=== PATIENT | female | born 1960 | race African-American/Black ===

== ENCOUNTER 2023-09-20 15:27 | Inpatient (IN) | payer SELFPAY ==
[2023-09-20] MEDS ORDERED: NOREPINEPHRINE 8 MG/250 ML-D5W 250 ML ONE ×2 (15:53→22:34)
[2023-09-20] MEDS ORDERED: Sodium Chloride 0.9% 100 ML ONE (16:27)
[2023-09-20] MEDS ORDERED: Cefepime 2 GM VIAL ONE (16:27)
[2023-09-20 16:34] LABS: Analyzer IN Cardio ER; Base Excess (BEa) -19.9 mEq/L (-2.0 to +3.0); Calcium, Ionized (arterial) 1.08 mmol/L (1.12-1.30); Carboxyhemoglobin (COHb) 1.3 gm% (0.0-3.0); Hematocrit-ABG 41 % (36.0-47.0); Hemoglobin (Hb) 13.9 g/dL (12.0-16.0); O2 Tension (PaO2), arterial 73.6 mmHg (> 80.0); Potassium - ABG Lab 4.07 mmol/L (3.70-5.30)
[2023-09-20 16:37] LABS: Bacteria/HPF None Seen HPF (None Seen); Bilirubin Negative (Negative); Blood, Urine Trace (Negative); CAUTI Indications for Culture Alt mental st,lethar; Clarity Turbid (Clear); Glucose, Urine (Dipstick) Normal (Negative); Ketone, Urine Negative (Negative); Leukocyte Negative Leu/uL (Negative); Nitrite Negative (Negative); Protein, Urine (Dipstick) 50 mg/dL (Neg-Trace); Specific Gravity, Urine 1.023 (1.002-1.036); Urobilinogen Normal mg/dL (Less than 2); WBC/HPF 0-3 HPF (0-3); pH, Urine 5.5 (5.0-9.0)
[2023-09-20] MEDS ORDERED: KETAMINE 100 MG/ML (5ML VIAL) ONE (16:37)
[2023-09-20 16:39] LABS: Urine Culture Reflex No No
[2023-09-20] MEDS ORDERED: Sodium Bicarb 50 mEq/50 ML VIAL ONE ×4 (16:39→21:47)
[2023-09-20 16:52] LABS: Delete Auto Diff?? YES; Hematocrit 41.8 % (36.0-47.0); Hemoglobin 13.3 g/dL (12.0-16.0); Manual Diff?? YES; Mean Corpuscular HGB CONC 31.8 g/dL (32.0-36.0); Mean Corpuscular Hemoglobin 31.6 pg (27.0-31.0); Mean Corpuscular Volume 99.3 fl (78.0-98.0); Platelet Count 321 10x3/uL (130-400); RBC Distribution Width 13.2 % (11.5-14.5); Red Blood Cell (RBC) Count 4.21 mill/uL (4.20-5.40); White Blood Cell (WBC) Count 2.3 10x3/uL (4.8-10.8)
[2023-09-20 16:57] LABS: pH, Arterial 7.121 (7.35-7.45)
[2023-09-20 16:58] LABS: ALV-art Gradient 609.025 mmHg (0-20); Actual Bicarbonate (HCO3a) 7.7 mEq/L (22-28); CO2 Tension 24.3 mmHg (35.0-45.0); Puncture Site RBA
[2023-09-20 17:09] LABS: SARS-CoV-2 NAA Rapid Test Not Detected (NotDetected)
[2023-09-20 17:15] LABS: Anisocytosis MARKED = >30 cells HPF (0-5); Band 17 % (5-11); Burr Cells SLIGHT = 2-5 cells HPF (0-1); CellaVision Operator ID LAB.MJL; Dohle Bodies SLIGHT; Eosinophils 1 % (0-10); Large Platelets 14.4 % (0-5); Lymphocytes 47 % (21-51); Macrocytosis MODERATE=16-30 cells HPF (0-5); Metamyelocyte 10 % (0-0); Monocytes 5 % (0-10); Myelocyte 4 % (0-0); Neutrophil 13 % (42-75); Nucleated RBC (Manual Ct) 6 % (0); Platelet Adequacy Comment Platelets Normal; Platelet Clumps 3.6 % (0-5); Poikilocytosis SLIGHT = 6-15 cells HPF (0-5); Polychromasia SLIGHT = 2-3 cells HPF (0-2); Promyelocytes 1 % (0-0); Reactive Lymphocytes 3 % (0-10); Reflex for Review?? YES; Total Cell Count 111; Toxic Granulation MODERATE; Vacuoles SLIGHT
[2023-09-20 17:30] LABS: ALT (SGPT) 15 U/L (8-55); AST (SGOT) 37 U/L (5-34); Acetaminophen Less than 10 mcg/mL (10.0-30.0); Albumin 3.2 g/dL (3.4-4.8); Alcohol Less than 10.0 mg/dL (Less than 10); Alkaline Phosphatase 58 U/L (40-110); BUN (Urea Nitrogen) 55 mg/dL (9.8-20.1); CK (CPK) 95 U/L (29-168); Calc. Creatinine Clearance 0 mL/min (70-130); Chloride 101 mmol/L (98-107); Estimated GFR 13; Globulin 4.5 g/dL (2.4-3.5); Glucose 67 mg/dL (80-115); Lipase 21 U/L (8-78); Magnesium 2.1 mg/dL (1.6-2.6); Protein, Total 7.7 g/dL (5.8-8.1); Salicylate Less than 8.0 mg/dL (15.0-30.0); Sodium 138 mmol/L (136-145)
[2023-09-20 17:37] LABS: Carbon Dioxide Less than 8 mmol/L (23-31); Troponin I 0.093 ng/mL (< 0.028)
[2023-09-20 17:47] LABS: Critical Call Chem-Lactate NUR.LH8@1746
[2023-09-20] MEDS ORDERED: Vancomycin (BATCH) 1.5 GM in Premix 1 BAG IVPB SCH (18:45)
[2023-09-20 19:48] LABS: Analyzer IN Cardio ER; Base Excess -15.7 mEq/L (-2.0 to +3.0); Calcium, Ionized (venous) 0.94 mmol/L (1.16-1.32); Chloride (VBG) 102 mmol/L (98-106); Hematocrit-VBG 40 % (36.0-47.0); Hemoglobin (Hb) 13.7 g/dL (11.7-16.0); Sodium 142 mmol/L (133-146)
[2023-09-20] MEDS ORDERED: Rocuronium Bromide 10 MG/ML (10ML VIAL) ONE (19:56)
[2023-09-20 20:14] LABS: Critical Call Chem-Lactate NUR.AG13@2014
[2023-09-20] MEDS ORDERED: Vasopressin 20 UNITS/ML VIAL ONE ×2 (20:20)
[2023-09-20 20:49] LABS: Analyzer IN Cardio ER; Base Excess (BEa) -20.7 mEq/L (-2.0 to +3.0); Carboxyhemoglobin (COHb) 0.6 gm% (0.0-3.0); Hematocrit-ABG 39 % (36.0-47.0); Hemoglobin (Hb) 13.3 g/dL (12.0-16.0); O2 Tension (PaO2), arterial 88.6 mmHg (> 80.0); Potassium - ABG Lab 4.45 mmol/L (3.70-5.30)
[2023-09-20 21:13] LABS: pH, Arterial 6.963 (7.35-7.45)
[2023-09-20 21:14] LABS: Actual Bicarbonate (HCO3a) 11.1 mEq/L (22-28)
[2023-09-20 21:15] LABS: Puncture Site RFA
[2023-09-20] MEDS ORDERED: Acetaminophen 650 MG Suppository ONE (21:19)
[2023-09-20] MEDS ORDERED: Propofol 1,000 MG/100 ML VIAL IV ONE (21:19)
[2023-09-20] MEDS ORDERED: Fentanyl CADD 100 ML IV SCH (21:30)
[2023-09-20] MEDS ORDERED: Ventilator Sedation Protocol 1 EACH FS ONE (21:46)
[2023-09-20] MEDS ORDERED: Hydrocortisone Sod Succ/PF 100 mg/2 ml Vial ONE (21:47)
[2023-09-20] MEDS ORDERED: Dextrose 50% Abboject 50 ML SYRINGE SLOW IVP PRN (21:57)
[2023-09-20] MEDS ORDERED: HumaLOG 300 UNITS/3 ML VIAL SC PRN ×2 (21:57)
[2023-09-20] MEDS ORDERED: Dextrose 5% in Water 1,000 ML IV PRN (21:57)
[2023-09-20] MEDS ORDERED: Glucagon 1 MG/ML KIT IM PRN (21:57)
[2023-09-20] MEDS ORDERED: Acetaminophen 325 MG TAB PO PRN (21:59)
[2023-09-20] MEDS ORDERED: Ondansetron ODT 4 MG TAB PO PRN (21:59)
[2023-09-20] MEDS ORDERED: Ondansetron PF 4 MG/2 ML Vial IVP PRN (21:59)
[2023-09-20] MEDS ORDERED: Propofol 1,000 MG/100 ML VIAL IV PRN (22:00)
[2023-09-20] MEDS ORDERED: Fentanyl BOLUS 250 ML IVPB PRN (22:00)
[2023-09-20] MEDS ORDERED: Pantoprazole 40 MG VIAL IVP SCH (22:00)
[2023-09-20] MEDS ORDERED: Morphine 2 MG/ML VIAL SLOW IVP PRN (22:00)
[2023-09-20] MEDS ORDERED: Propofol BOLUS 1,000 MG/100 ML VIAL IV PRN (22:00)
[2023-09-20] MEDS ORDERED: DISCONTINUE PREVIOUS NARCOTIC PAIN MEDICATIONS AND BENZODIAZEPINES FS SCH (22:00)
[2023-09-20] MEDS ORDERED: Lorazepam 2 MG/ML VIAL SLOW IVP PRN (22:00)
[2023-09-20] MEDS ORDERED: Sodium Bicarbonate 150 MEQ in Dextrose 5% in Water 1,000 ML IV SCH ×2 (22:00→23:45)
[2023-09-20 22:32] LABS: Actual Bicarbonate (HCO3a) 19.6 mEq/L (22-28); Analyzer IN Cardio ER; Base Excess (BEa) -10.2 mEq/L (-2.0 to +3.0); Calcium, Ionized (arterial) 0.95 mmol/L (1.12-1.30); Carboxyhemoglobin (COHb) 0.5 gm% (0.0-3.0); Hematocrit-ABG 40 % (36.0-47.0); Hemoglobin (Hb) 13.6 g/dL (12.0-16.0); Potassium - ABG Lab 3.64 mmol/L (3.70-5.30)
[2023-09-20] MEDS ORDERED: Acetaminophen 325 MG Suppository ONE (22:34)
[2023-09-20 22:58] LABS: Puncture Site RFA
[2023-09-20] MEDS ORDERED: Potassium Chloride 20 MEQ in Premix 1 BAG IVPB SCH (23:00)
[2023-09-20 23:28] LABS: Anion Gap 30 mmol/L (10-20); BUN (Urea Nitrogen) 64 mg/dL (9.8-20.1); Calc. Creatinine Clearance 0 mL/min (70-130); Calcium 8.2 mg/dL (7.8-10.44); Carbon Dioxide 13 mmol/L (23-31); Chloride 103 mmol/L (98-107); Estimated GFR 12; Potassium 3.9 mmol/L (3.5-5.1); Sodium 142 mmol/L (136-145)
[2023-09-20 23:29] LABS: Lactic Acid 12.3 mmol/L (0.5-2.2)
[2023-09-20 23:38] LABS: Critical Call Chemistry REHAB.JMB@2337; Glucose 53 mg/dL (80-115); Troponin I 0.167 ng/mL (< 0.028)
[2023-09-21] MEDS ORDERED: LevoFLOXacin 750 mg/D5W 750 MG in Premix 1 BAG IVPB SCH (01:00)
[2023-09-21] MEDS: Sodium Bicarbonate 150 MEQ in Dextrose 5% in Water 1,000 ML IV SCH ×4 (01:55→17:34)
[2023-09-21 02:06] LABS: Legionella Urinary Ag Negative (Negative); Strep pneumo Urine Ag POSITIVE (NEGATIVE)
[2023-09-21 02:22] LABS: Troponin I 0.152 ng/mL (< 0.028)
[2023-09-21] MEDS ORDERED: Vasopressin 20 UNITS in Sodium Chloride 0.9% 50 ML IV SCH (03:15)
[2023-09-21] MEDS: NOREPINEPHRINE 8 MG/250 ML-D5W 250 ML IVPB SCH ×2 (03:16→07:36)
[2023-09-21] MEDS: Hydrocortisone Sod Succ/PF 100 mg/2 ml Vial IVP SCH ×4 (03:16→17:34)
[2023-09-21] MEDS: Acetaminophen 650 MG Suppository PR PRN ×2 (03:46→08:19)
[2023-09-21 04:30] LABS: Hematocrit 35.4 % (36.0-47.0); Hemoglobin 11.5 g/dL (12.0-16.0); Manual Diff?? YES; Mean Corpuscular HGB CONC 32.5 g/dL (32.0-36.0); Mean Corpuscular Hemoglobin 31.6 pg (27.0-31.0); Mean Corpuscular Volume 97.3 fl (78.0-98.0); Platelet Count 280 10x3/uL (130-400); RBC Distribution Width 13.3 % (11.5-14.5); Red Blood Cell (RBC) Count 3.64 mill/uL (4.20-5.40); White Blood Cell (WBC) Count 2.5 10x3/uL (4.8-10.8)
[2023-09-21 04:32] LABS: Delete Auto Diff?? YES
[2023-09-21] MEDS: Cefepime 1 GM in Sodium Chloride 0.9% 100 ML IVPB SCH ×3 (04:33→17:35)
[2023-09-21 04:51] LABS: ALT (SGPT) 267 U/L (8-55); AST (SGOT) 793 U/L (5-34); Albumin 2.5 g/dL (3.4-4.8); Alkaline Phosphatase 47 U/L (40-110); Anion Gap 32 mmol/L (10-20); BUN (Urea Nitrogen) 70 mg/dL (9.8-20.1); Bilirubin, Total 0.9 mg/dL (0.2-1.2); Calc. Creatinine Clearance 16 mL/min (70-130); Carbon Dioxide 18 mmol/L (23-31); Chloride 94 mmol/L (98-107); Estimated GFR 11; Globulin 3.6 g/dL (2.4-3.5); Glucose 172 mg/dL (80-115); Magnesium 2.2 mg/dL (1.6-2.6); Potassium 3.8 mmol/L (3.5-5.1); Protein, Total 6.1 g/dL (5.8-8.1); Sodium 140 mmol/L (136-145)
[2023-09-21 04:54] LABS: Critical Call Chemistry CC.YS AT 0453; Lactic Acid 12.6 mmol/L (0.5-2.2); Phosphorus 9.7 mg/dL (2.3-4.7)
[2023-09-21 05:09] LABS: Anisocytosis SLIGHT = 6-15 cells HPF (0-5); Band 15 % (5-11); CellaVision Operator ID LAB.CLH1; Hypochromia SLIGHT = 6-15 cells HPF (0-5); Large Platelets 38.5 % (0-5); Lymphocytes 39 % (21-51); Monocytes 27 % (0-10); Myelocyte 15 % (0-0); Neutrophil 4 % (42-75); Nucleated RBC (Manual Ct) 58 % (0); Platelet Adequacy Comment Platelets Normal; Polychromasia SLIGHT = 2-3 cells HPF (0-2); Total Cell Count 26
[2023-09-21 08:04] VITALS: BP 114/78
[2023-09-21] MEDS ORDERED: Pantoprazole 40 MG VIAL IVP SCH (09:00)
[2023-09-21] MEDS ORDERED: Heparin 5,000 UNITS/ML VIAL SC SCH (09:00)
[2023-09-21 10:38] LABS: Actual Bicarbonate (HCO3a) 21.1 mEq/L (22-28); Base Excess (BEa) -1.4 mEq/L (-2.0 to +3.0); CO2 Tension 29.1 mmHg (35.0-45.0); Carboxyhemoglobin (COHb) 0.7 gm% (0.0-3.0); Hematocrit-ABG 34 % (36.0-47.0); Hemoglobin (Hb) 11.7 g/dL (12.0-16.0); pH, Arterial 7.479 (7.35-7.45)
[2023-09-21 10:41] LABS: Calcium, Ionized (arterial) 0.75 mmol/L (1.12-1.30); O2 Tension (PaO2), arterial 57.5 mmHg (> 80.0); Puncture Site RBA
[2023-09-21 10:42] LABS: ALV-art Gradient 191.325 mmHg (0-20)
[2023-09-21] MEDS ORDERED: Vancomycin Dose by Levels Sliding Scale (Wt 71-99) FS SCH (10:45)
[2023-09-21] MEDS ORDERED: Vancomycin 1 GM in Premix 1 BAG IVPB SCH (11:00)
[2023-09-21 12:14] VITALS: BMI 28.7
[2023-09-21 12:53] VITALS: TEMP 100
[2023-09-21] MEDS ORDERED: Albumin 25% 25 GM (100 mL) BOT IVPB SCH (15:30)
[2023-09-22 11:00] LABS: CO2 Tension 60.8 mmHg (35.0-45.0); pH, Arterial 7.126 (7.35-7.45)
[2023-09-22 11:07] LABS: Actual Bicarbonate (HCO3v) 13.1 mEq/L (22-28); pH (venous) 7.116 (7.32-7.43)
[2023-09-23] MEDS ORDERED: LevoFLOXacin 500 mg/D5W 500 MG in Premix 1 BAG IVPB SCH (01:00)
[2023-09-24] MEDS ORDERED: FLU VACC QS2023-24(6MOS UP)/PF 60 MCG/0.5 ML SYRINGE IM ONE (09:00)
== END 2023-09-21 15:40 | disposition expired | DRG 871 ==
LOC: ERS 15:27 → CCU 22:02
PROVIDERS: ADMIT Internal Medicine; ATTEND Internal Medicine
PROC: 4A133R1 Monitoring of Arterial Saturation, Peripheral, Percutaneous Approach (ICD-10-PCS; principal; 2023-09-20)
PROC: 3E033XZ Introduction of Vasopressor into Peripheral Vein, Percutaneous Approach (ICD-10-PCS; 2023-09-20)
PROC: 30233J1 Transfusion of Nonautologous Serum Albumin into Peripheral Vein, Percutaneous Approach (ICD-10-PCS; 2023-09-21)
PROC: 0BH17EZ Insertion of Endotracheal Airway into Trachea, Via Natural or Artificial Opening (ICD-10-PCS; 2023-09-21)
PROC: 5A1935Z Respiratory Ventilation, Less than 24 Consecutive Hours (ICD-10-PCS; 2023-09-21)
PROC: 06HY33Z Insertion of Infusion Device into Lower Vein, Percutaneous Approach (ICD-10-PCS; 2023-09-21)
DX: A41.89 Other specified sepsis (principal); G93.41 Metabolic encephalopathy; R65.21 Severe sepsis with septic shock; J96.01 Acute respiratory failure with hypoxia; J18.9 Pneumonia, unspecified organism; N17.0 Acute kidney failure with tubular necrosis; J96.22 Acute and chronic respiratory failure with hypercapnia; N17.9 Acute kidney failure, unspecified; I24.89 Other forms of acute ischemic heart disease; C41.9 Malignant neoplasm of bone and articular cartilage, unspecified; E72.20 Disorder of urea cycle metabolism, unspecified; E87.4 Mixed disorder of acid-base balance; Z66 Do not resuscitate; Z51.5 Encounter for palliative care; E16.2 Hypoglycemia, unspecified; E87.6 Hypokalemia; Z99.3 Dependence on wheelchair; Z79.899 Other long term (current) drug therapy; Z11.52 Encounter for screening for COVID-19; Z78.1 Physical restraint status; I11.0 Hypertensive heart disease with heart failure; I50.9 Heart failure, unspecified
CPT/HCPCS: 31500; 36415; 36416; 36556; 36600; 51702; 71045; 71250; 74177; 80053; 80307; 81001; 82140; 82533; 82550; 82805; 83605; 83690; 83735; 83880; 84100; 84145; 84443; 84484; 85025; 85060; 87040; 87070; 87077; 87186; 87205; 87449; 87899; 89220; 93005; 93010; 93306; 94003; 94660; 96360; 96361; 96365; 96366; 99292; C9113; J0692; J1644; J1720; J1956; J2060; J2704; J3010; J3370; J3370-JW; J3490; J7070; J7999; P9047